=== PATIENT | female | born 1975 | race Two or more races ===

== ENCOUNTER → 2017-06-11 16:18 | Outpatient (CLI) | payer OTHER ==
[~2017-06-11] VITALS: Ht 152.4 cm; Wt 117.9 kg
[~2017-06-11 16:18] MED LIST: CATAFLAM50 MG PO; CIPRO500 MG PO; ENDOCET 5/325 T1 TAB PO; GILTUSS TR TAB1 EACH; IRON1TAB4; KETO10TA2 PO; MAALOX ADVANCE355 ML PO; MIRALAX510 GM PO; NAPR500T14 PO; PROTONIX40 MG PO; PROVENTIL HFA6.7 GM IH; ZITHROMAX500 MG
== END | disposition home or self-care (01) ==
LOC: PPHC 16:18
DX: F41.8 Other specified anxiety disorders (principal)

== ENCOUNTER 2017-06-12 06:50 | Outpatient (CLI) | payer OTHER | END 2017-06-12 07:08 | disposition home or self-care (01) | LOC: LAB 06:50 | DX: Z00.00 Encounter for general adult medical examination without abnormal findings (principal) ==

== ENCOUNTER 2017-06-12 06:59 | Outpatient (CLI) | payer OTHER | END 2017-06-12 07:03 | disposition home or self-care (01) | LOC: EKG 06:59 | DX: F41.9 Anxiety disorder, unspecified (principal) ==

== ENCOUNTER → 2017-06-13 | Outpatient (CLI) | payer OTHER ==
[~2017-06-13] VITALS: Ht 152.4 cm; Wt 110.2 kg
== END | disposition home or self-care (01) ==
LOC: PPHC 15:51
DX: Z00.00 Encounter for general adult medical examination without abnormal findings (principal); R00.2 Palpitations

== ENCOUNTER 2017-11-17 23:47 | Emergency (ER) | payer OTHER ==
[~2017-11-17] VITALS: Ht 162.6 cm; Wt 108.9 kg
== END 2017-11-18 01:02 | disposition home or self-care (01) ==
LOC: ER 23:47
DX: M54.5 Low back pain (principal)

== ENCOUNTER 2017-12-09 07:20 | Outpatient (CLI) | payer OTHER | END 2017-12-09 07:25 | disposition home or self-care (01) | LOC: LAB 07:20 | DX: D64.89 Other specified anemias (principal) ==

== ENCOUNTER 2017-12-09 08:00 | Outpatient (CLI) | payer OTHER | END 2017-12-09 08:06 | disposition home or self-care (01) | LOC: MAMO-SONO 08:00 | DX: Z12.31 Encounter for screening mammogram for malignant neoplasm of breast (principal) ==

== ENCOUNTER 2017-12-23 10:26 | Outpatient (CLI) | payer OTHER | END 2017-12-23 10:32 | disposition home or self-care (01) | LOC: LAB 10:26 | DX: D64.89 Other specified anemias (principal) ==

== ENCOUNTER 2018-04-21 06:48 | Outpatient (CLI) | payer OTHER | END 2018-04-21 06:53 | disposition home or self-care (01) | LOC: LAB 06:48 | DX: D50.8 Other iron deficiency anemias (principal); E03.8 Other specified hypothyroidism; E78.2 Mixed hyperlipidemia; I11.9 Hypertensive heart disease without heart failure; E56.8 Deficiency of other vitamins; N39.0 Urinary tract infection, site not specified; Z12.11 Encounter for screening for malignant neoplasm of colon; E55.9 Vitamin D deficiency, unspecified; N19 Unspecified kidney failure; E11.9 Type 2 diabetes mellitus without complications; R80.8 Other proteinuria; K92.1 Melena ==

== ENCOUNTER 2018-07-20 17:45 | Outpatient (CLI) | payer OTHER | END 2018-07-20 18:02 | disposition home or self-care (01) | LOC: LAB 17:45 | DX: J20.0 Acute bronchitis due to Mycoplasma pneumoniae (principal) ==

== ENCOUNTER 2018-08-10 07:20 | Outpatient (CLI) | payer OTHER | END 2018-08-10 07:28 | disposition home or self-care (01) | LOC: LAB 07:20 | DX: D50.8 Other iron deficiency anemias (principal); E03.8 Other specified hypothyroidism; E78.2 Mixed hyperlipidemia; I11.9 Hypertensive heart disease without heart failure; E56.8 Deficiency of other vitamins; N39.0 Urinary tract infection, site not specified; Z12.11 Encounter for screening for malignant neoplasm of colon; B96.89 Other specified bacterial agents as the cause of diseases classified elsewhere ==

== ENCOUNTER 2018-08-14 15:28 | Outpatient (CLI) | payer OTHER | END 2018-08-14 19:00 | disposition home or self-care (01) | LOC: LAB 15:28 | DX: J11.1 Influenza due to unidentified influenza virus with other respiratory manifestations (principal) ==

== ENCOUNTER 2018-12-17 13:55 | Outpatient (CLI) | payer OTHER | END 2018-12-17 13:57 | disposition home or self-care (01) | LOC: MAMO-SONO 13:55 | DX: Z12.31 Encounter for screening mammogram for malignant neoplasm of breast (principal); N63.10 Unspecified lump in the right breast, unspecified quadrant; N63.20 Unspecified lump in the left breast, unspecified quadrant ==

== ENCOUNTER 2019-01-05 07:49 | Outpatient (CLI) | payer OTHER | END 2019-01-05 07:55 | disposition home or self-care (01) | LOC: LAB 07:49 | DX: D50.8 Other iron deficiency anemias (principal); E03.9 Hypothyroidism, unspecified; E03.8 Other specified hypothyroidism; E78.2 Mixed hyperlipidemia; I11.9 Hypertensive heart disease without heart failure; E56.8 Deficiency of other vitamins; N39.0 Urinary tract infection, site not specified; Z12.11 Encounter for screening for malignant neoplasm of colon; R19.5 Other fecal abnormalities; E55.9 Vitamin D deficiency, unspecified; N19 Unspecified kidney failure; E11.9 Type 2 diabetes mellitus without complications; R80.9 Proteinuria, unspecified; R80.8 Other proteinuria; C18.9 Malignant neoplasm of colon, unspecified ==

== ENCOUNTER → 2019-01-09 07:35 | Outpatient (CLI) | payer OTHER | END | disposition home or self-care (01) | LOC: LAB 07:35 | DX: D50.8 Other iron deficiency anemias (principal); E03.8 Other specified hypothyroidism; E78.2 Mixed hyperlipidemia; E11.9 Type 2 diabetes mellitus without complications; E56.8 Deficiency of other vitamins; N39.0 Urinary tract infection, site not specified; Z12.11 Encounter for screening for malignant neoplasm of colon; R19.5 Other fecal abnormalities; E55.9 Vitamin D deficiency, unspecified; N19 Unspecified kidney failure; R80.8 Other proteinuria; C18.9 Malignant neoplasm of colon, unspecified ==

== ENCOUNTER → 2019-03-22 12:38 | Outpatient (CLI) | payer OTHER | END | disposition home or self-care (01) | LOC: LAB 12:38 | DX: J11.1 Influenza due to unidentified influenza virus with other respiratory manifestations (principal); J20.0 Acute bronchitis due to Mycoplasma pneumoniae ==

== ENCOUNTER 2019-03-23 12:55 | Outpatient (CLI) | payer OTHER | END 2019-03-23 13:00 | disposition home or self-care (01) | LOC: LAB 12:55 | DX: J11.1 Influenza due to unidentified influenza virus with other respiratory manifestations (principal) ==

== ENCOUNTER 2019-03-24 07:22 | Outpatient (CLI) | payer OTHER | END 2019-03-24 07:26 | disposition home or self-care (01) | LOC: LAB 07:22 | DX: B34.8 Other viral infections of unspecified site (principal) ==

== ENCOUNTER 2019-03-26 14:41 | Outpatient (CLI) | payer OTHER | END 2019-03-26 14:49 | disposition home or self-care (01) | LOC: LAB 14:41 | DX: D69.49 Other primary thrombocytopenia (principal); J06.9 Acute upper respiratory infection, unspecified ==

== ENCOUNTER 2019-06-25 07:05 | Outpatient (CLI) | payer OTHER | END 2019-06-25 07:09 | disposition home or self-care (01) | LOC: LAB 07:05 | DX: D50.8 Other iron deficiency anemias (principal); E03.8 Other specified hypothyroidism; E78.2 Mixed hyperlipidemia; I11.9 Hypertensive heart disease without heart failure; E56.8 Deficiency of other vitamins; N39.0 Urinary tract infection, site not specified; Z12.11 Encounter for screening for malignant neoplasm of colon; E55.9 Vitamin D deficiency, unspecified; N19 Unspecified kidney failure; E11.9 Type 2 diabetes mellitus without complications; R80.8 Other proteinuria; C18.0 Malignant neoplasm of cecum; K92.1 Melena ==

== ENCOUNTER 2019-09-13 14:49 | Outpatient (CLI) | payer OTHER | END 2019-09-13 15:22 | disposition home or self-care (01) | LOC: LAB 14:49 | DX: J11.1 Influenza due to unidentified influenza virus with other respiratory manifestations (principal); J06.9 Acute upper respiratory infection, unspecified ==

== ENCOUNTER 2019-09-14 10:08 | Outpatient (CLI) | payer OTHER | END 2019-09-14 11:12 | disposition home or self-care (01) | LOC: LAB 10:08 | DX: J06.9 Acute upper respiratory infection, unspecified (principal); R05 Cough ==

== ENCOUNTER 2019-12-16 23:23 | Emergency (ER) | payer OTHER ==
[~2019-12-16] VITALS: Ht 154.9 cm; Wt 107.0 kg
== END 2019-12-17 05:19 | disposition home or self-care (01) ==
LOC: ER 23:23
DX: N93.8 Other specified abnormal uterine and vaginal bleeding (principal)

== ENCOUNTER → 2019-12-22 14:16 | Outpatient (CLI) | payer OTHER | END | disposition home or self-care (01) | LOC: LAB 14:16 | PROVIDERS: ATTEND General Practice | DX: N93.8 Other specified abnormal uterine and vaginal bleeding (principal) ==

== ENCOUNTER 2020-01-06 06:45 | Outpatient (CLI) | payer OTHER | END 2020-01-06 06:52 | disposition home or self-care (01) | LOC: LAB 06:45 | PROVIDERS: ATTEND Specialist | DX: D50.8 Other iron deficiency anemias (principal); E83.51 Hypocalcemia; D68.8 Other specified coagulation defects; N39.0 Urinary tract infection, site not specified; N83.299 Other ovarian cyst, unspecified side ==

== ENCOUNTER 2020-01-10 07:28 | Outpatient (CLI) | payer OTHER | END 2020-01-10 07:41 | disposition home or self-care (01) | LOC: RAD 07:28 → MAMO-SONO 07:45 | PROVIDERS: ATTEND Specialist | DX: Z12.31 Encounter for screening mammogram for malignant neoplasm of breast (principal); N63.10 Unspecified lump in the right breast, unspecified quadrant; N63.20 Unspecified lump in the left breast, unspecified quadrant; R10.2 Pelvic and perineal pain; N81.4 Uterovaginal prolapse, unspecified; N92.0 Excessive and frequent menstruation with regular cycle ==

== ENCOUNTER 2020-01-10 09:24 | Outpatient (CLI) | payer OTHER | END 2020-01-10 09:31 | disposition home or self-care (01) | LOC: EKG 09:24 | PROVIDERS: ATTEND Specialist | DX: Z01.810 Encounter for preprocedural cardiovascular examination (principal) ==

== ENCOUNTER → 2020-01-12 14:30 | Outpatient (CLI) | payer OTHER | END | disposition home or self-care (01) | LOC: LAB 10:06 | PROVIDERS: ATTEND Internal Medicine Cardiovascular Disease | DX: R05 Cough (principal); Z20.828 Contact with and (suspected) exposure to other viral communicable diseases; R06.2 Wheezing ==

== ENCOUNTER → 2020-01-14 | Outpatient (CLI) | payer OTHER | END | disposition home or self-care (01) | LOC: LAB 06:00 → OB/GYN 01-17 11:00 → EDSTATUS 01-17 11:00 | PROVIDERS: ATTEND Specialist | DX: Z20.828 Contact with and (suspected) exposure to other viral communicable diseases (principal); R05 Cough; R06.2 Wheezing; R50.9 Fever, unspecified ==

== ENCOUNTER 2020-02-17 08:00 | Outpatient (CLI) | payer OTHER | END 2020-02-17 15:45 | disposition home or self-care (01) | LOC: PPH VACUNA 08:00 | DX: Z23 Encounter for immunization (principal) ==

== ENCOUNTER 2020-02-21 07:17 | Outpatient (CLI) | payer OTHER | END 2020-02-21 07:22 | disposition home or self-care (01) | LOC: LAB 07:17 | DX: J45.998 Other asthma (principal) ==

== ENCOUNTER 2020-03-15 14:42 | Outpatient (CLI) | payer OTHER | END 2020-03-15 15:38 | disposition home or self-care (01) | LOC: LAB 14:42 | PROVIDERS: ATTEND General Practice | DX: D64.89 Other specified anemias (principal) ==

== ENCOUNTER 2020-05-14 15:23 | Emergency (ER) | payer OTHER ==
[~2020-05-14] VITALS: Ht 162.6 cm; Wt 107.0 kg
[2020-05-14] MEDS ORDERED: KETO10TA2 PO (18:25)
[2020-05-14] MEDS ORDERED: ORPHENADRINE C100 MG PO (18:25)
[2020-05-14] MEDS ORDERED: PEPCID20 MG PO (18:25)
== END 2020-05-14 18:44 | disposition home or self-care (01) ==
LOC: ER 15:23
DX: M54.5 Low back pain (principal)

== ENCOUNTER 2020-05-18 09:11 | Outpatient (CLI) | payer OTHER ==
[~2020-05-18 09:11] MED LIST changes: +ORPHENADRINE C100 MG PO; +PEPCID20 MG PO
[2020-07-28] MEDS ORDERED: INTEGRA F CAPS1 EACH PO (13:59)
[2020-07-28] MEDS ORDERED: FLONASE16 GM (13:59)
[2020-07-28] MEDS ORDERED: VITAL-D RX TAB1 EACH PO (14:00)
[2020-08-07] MEDS ORDERED: IBUPROFEN800 MG PO (08:45)
== END 2020-05-18 18:00 | disposition home or self-care (01) ==
LOC: PPH VACUNA 09:11
DX: Z23 Encounter for immunization (principal)

== ENCOUNTER 2020-07-18 06:41 | Outpatient (CLI) | payer OTHER ==
[2020-07-28] MEDS ORDERED: INTEGRA F CAPS1 EACH PO (13:59)
[2020-07-28] MEDS ORDERED: FLONASE16 GM (13:59)
[2020-07-28] MEDS ORDERED: VITAL-D RX TAB1 EACH PO (14:00)
== END 2020-07-18 06:49 | disposition home or self-care (01) ==
LOC: LAB 06:41
PROVIDERS: ATTEND Specialist
DX: U07.1 COVID-19 (principal); D50.8 Other iron deficiency anemias; E83.51 Hypocalcemia; D68.8 Other specified coagulation defects; N39.0 Urinary tract infection, site not specified; R00.0 Tachycardia, unspecified

== ENCOUNTER 2020-10-02 12:41 | Emergency (ER) | payer OTHER ==
[~2020-10-02] VITALS: Ht 162.6 cm; Wt 102.5 kg
[~2020-10-02 12:41] MED LIST changes: +FLONASE16 GM; +IBUPROFEN800 MG PO; +INTEGRA F CAPS1 EACH PO; +VITAL-D RX TAB1 EACH PO
[2020-10-02] MEDS ORDERED: CLEOCIN HCL300 MG PO (15:41)
== END 2020-10-02 15:56 | disposition home or self-care (01) ==
LOC: ER 12:41
DX: K29.00 Acute gastritis without bleeding (principal)

== ENCOUNTER 2020-11-01 09:14 | Emergency (ER) | payer OTHER ==
[~2020-11-01] VITALS: Ht 162.6 cm; Wt 103.0 kg
[~2020-11-01 09:14] MED LIST changes: +CLEOCIN HCL300 MG PO
[2020-11-01] MEDS ORDERED: LACTULOSE10 GM/151 PO (11:46)
== END 2020-11-01 11:54 | disposition home or self-care (01) ==
LOC: ER 09:14
DX: K59.09 Other constipation (principal)

== ENCOUNTER 2020-12-18 23:25 | Emergency (ER) | payer OTHER ==
[~2020-12-18] VITALS: Ht 162.6 cm; Wt 101.2 kg
[~2020-12-18 23:25] MED LIST changes: +LACTULOSE10 GM/151 PO
[2020-12-19] MEDS ORDERED: MEDROLPACK PO (02:01)
[2020-12-19] MEDS ORDERED: ORPHENADRINE C100 MG PO (02:01)
[2020-12-19] MEDS ORDERED: KETO10TA2 PO (02:01)
== END 2020-12-19 02:24 | disposition home or self-care (01) ==
LOC: ER 23:25
DX: M54.5 Low back pain (principal)

== ENCOUNTER 2021-01-12 00:28 | Emergency (ER) | payer OTHER ==
[~2021-01-12] VITALS: Ht 162.6 cm; Wt 102.5 kg
[~2021-01-12 00:28] MED LIST changes: +MEDROLPACK PO
[2021-01-12] MEDS ORDERED: TAMS0.4C PO (08:20)
[2021-01-12] MEDS ORDERED: KETO10TA2 PO (08:20)
== END 2021-01-12 08:44 ==
LOC: ER 00:28
DX: N20.0 Calculus of kidney (principal)

== ENCOUNTER 2021-02-26 08:00 | Outpatient (CLI) | payer OTHER ==
[~2021-02-26 08:00] MED LIST changes: +TAMS0.4C PO
== END 2021-02-26 08:30 | disposition home or self-care (01) ==
LOC: PPH VACUNA 08:00
PROVIDERS: ATTEND Emergency Medicine Pediatric Emergency Medicine
DX: Z23 Encounter for immunization (principal)

== ENCOUNTER 2021-03-22 09:00 | Outpatient (CLI) | payer OTHER | END 2021-03-22 09:04 | disposition home or self-care (01) | LOC: LAB 09:00 | PROVIDERS: ATTEND Internal Medicine Cardiovascular Disease | DX: I10 Essential (primary) hypertension (principal); R10.84 Generalized abdominal pain; E11.9 Type 2 diabetes mellitus without complications; E03.8 Other specified hypothyroidism; E78.2 Mixed hyperlipidemia; E55.9 Vitamin D deficiency, unspecified; M46.47 Discitis, unspecified, lumbosacral region ==

== ENCOUNTER 2021-03-24 17:58 | Emergency (ER) | payer OTHER ==
[~2021-03-24] VITALS: Ht 154.9 cm; Wt 88.5 kg
== END 2021-03-24 18:36 | disposition home or self-care (01) ==
LOC: ER 17:58
DX: M77.8 Other enthesopathies, not elsewhere classified (principal); M25.531 Pain in right wrist

== ENCOUNTER 2021-05-21 05:53 | Day surgery (SDC) | payer OTHER | END 2021-05-21 10:35 | disposition home or self-care (01) | LOC: AMB-ENDOS 05:53 | PROVIDERS: ATTEND Surgery | DX: K62.89 Other specified diseases of anus and rectum (principal) ==

== ENCOUNTER 2021-08-20 14:58 | Emergency (ER) | payer OTHER ==
[~2021-08-20] VITALS: Ht 162.6 cm; Wt 106.1 kg
== END 2021-08-20 19:50 | disposition home or self-care (01) ==
LOC: ER 14:58
DX: F41.9 Anxiety disorder, unspecified (principal); R51.9 Headache, unspecified; F43.0 Acute stress reaction; Z20.822 Contact with and (suspected) exposure to COVID-19

== ENCOUNTER 2021-11-15 10:14 | Emergency (ER) | payer OTHER ==
[~2021-11-15] VITALS: Ht 162.6 cm; Wt 107.0 kg
== END 2021-11-15 13:14 | disposition home or self-care (01) ==
LOC: ER 10:14
DX: U07.1 COVID-19 (principal); B34.9 Viral infection, unspecified; Z91.012 Allergy to eggs; Z91.013 Allergy to seafood; Z88.8 Allergy status to other drugs, medicaments and biological substances; Z91.018 Allergy to other foods

== ENCOUNTER 2022-01-14 23:39 | Emergency (ER) | payer OTHER ==
[~2022-01-14] VITALS: Ht 162.6 cm; Wt 106.6 kg
[2022-01-15] MEDS ORDERED: DICLOFENAC POTA50 MG PO (05:26)
== END 2022-01-15 06:07 | disposition home or self-care (01) ==
LOC: ER 23:39
DX: R10.2 Pelvic and perineal pain (principal); N28.1 Cyst of kidney, acquired; Z91.012 Allergy to eggs; Z91.013 Allergy to seafood; Z88.8 Allergy status to other drugs, medicaments and biological substances; Z91.018 Allergy to other foods

== ENCOUNTER 2022-01-25 07:58 | Outpatient (CLI) | payer OTHER ==
[~2022-01-25 07:58] MED LIST changes: +DICLOFENAC POTA50 MG PO
== END 2022-01-25 07:59 | disposition home or self-care (01) ==
LOC: LAB 07:58
PROVIDERS: ATTEND Internal Medicine Nephrology
DX: N18.1 Chronic kidney disease, stage 1 (principal); I10 Essential (primary) hypertension; E78.70 Disorder of bile acid and cholesterol metabolism, unspecified

== ENCOUNTER 2022-02-08 08:31 | Outpatient (CLI) | payer OTHER | END 2022-02-08 15:42 | disposition home or self-care (01) | LOC: MAMO-SONO 08:31 | PROVIDERS: ATTEND General Practice | DX: N63.0 Unspecified lump in unspecified breast (principal); Z12.31 Encounter for screening mammogram for malignant neoplasm of breast ==

== ENCOUNTER 2022-02-13 08:00 | Outpatient (CLI) | payer OTHER | END 2022-02-13 08:05 | disposition home or self-care (01) | LOC: PPH VACUNA 08:00 | PROVIDERS: ATTEND Emergency Medicine Pediatric Emergency Medicine | DX: Z23 Encounter for immunization (principal) ==

== ENCOUNTER → 2022-03-03 | Emergency (ER) | payer OTHER ==
[~2022-03-03] VITALS: Ht 157.5 cm; Wt 79.4 kg
== END | disposition home or self-care (01) ==
LOC: ER 15:19
DX: M62.830 Muscle spasm of back (principal); Z91.013 Allergy to seafood; Z91.012 Allergy to eggs; Z88.6 Allergy status to analgesic agent

== ENCOUNTER 2022-03-18 07:50 | Emergency (ER) | payer OTHER ==
[~2022-03-18] VITALS: Ht 162.6 cm; Wt 108.9 kg
[2022-03-18] MEDS ORDERED: LEVSIN/SL0.125 MG SL (17:20)
[2022-03-18] MEDS ORDERED: PEPCID AC20 MG PO (17:20)
== END 2022-03-18 17:25 | disposition home or self-care (01) ==
LOC: ER 07:50
DX: K80.50 Calculus of bile duct without cholangitis or cholecystitis without obstruction (principal)

== ENCOUNTER 2022-04-29 07:09 | Outpatient (CLI) | payer OTHER ==
[~2022-04-29 07:09] MED LIST changes: +LEVSIN/SL0.125 MG SL; +PEPCID AC20 MG PO
== END 2022-04-29 07:11 | disposition home or self-care (01) ==
LOC: NUCLEAR 07:09
PROVIDERS: ATTEND Surgery
DX: K80.80 Other cholelithiasis without obstruction (principal); R10.9 Unspecified abdominal pain; Z91.012 Allergy to eggs; Z91.02 Food additives allergy status; Z88.5 Allergy status to narcotic agent; Z91.013 Allergy to seafood
CPT/HCPCS: 78227; A9537; J2805

== ENCOUNTER → 2022-06-20 | Outpatient (CLI) | payer OTHER ==
[~2022-06-20] MED LIST changes: +MAXITROL EYE DRO5 ML OP
== END | disposition home or self-care (01) ==
LOC: NUCLEAR 06:45
PROVIDERS: ATTEND Internal Medicine Cardiovascular Disease
DX: I87.2 Venous insufficiency (chronic) (peripheral) (principal)

== ENCOUNTER 2022-07-29 15:21 | Outpatient (CLI) | payer OTHER | END 2022-07-29 15:34 | disposition home or self-care (01) | LOC: PPH VACUNA 15:21 | PROVIDERS: ATTEND Emergency Medicine Pediatric Emergency Medicine | DX: Z23 Encounter for immunization (principal) ==

== ENCOUNTER 2022-08-21 10:04 | Emergency (ER) | payer OTHER ==
[~2022-08-21] VITALS: Ht 162.6 cm; Wt 108.9 kg
[2022-08-21] MEDS ORDERED: ECOTRIN81 MG (10:19)
[2022-08-21] MEDS ORDERED: TAMS0.4C PO (14:13)
[2022-08-21] MEDS ORDERED: KETO10TA2 PO (14:13)
== END 2022-08-21 14:19 | disposition home or self-care (01) ==
LOC: ER 10:04
DX: N20.0 Calculus of kidney (principal); Z91.013 Allergy to seafood; Z88.5 Allergy status to narcotic agent; Z91.012 Allergy to eggs; Z91.018 Allergy to other foods; Z90.710 Acquired absence of both cervix and uterus

== ENCOUNTER 2022-12-11 22:35 | Emergency (ER) | payer OTHER ==
[~2022-12-11] VITALS: Ht 162.6 cm; Wt 108.0 kg
[~2022-12-11 22:35] MED LIST changes: +ECOTRIN81 MG
== END 2022-12-12 00:09 | disposition home or self-care (01) ==
LOC: ER 22:35
DX: M54.31 Sciatica, right side (principal); Z91.012 Allergy to eggs; Z91.013 Allergy to seafood; Z88.6 Allergy status to analgesic agent

== ENCOUNTER 2022-12-27 14:44 | Emergency (ER) | payer OTHER ==
[~2022-12-27] VITALS: Ht 162.6 cm; Wt 108.0 kg
== END 2022-12-27 16:57 | disposition home or self-care (01) ==
LOC: ER 14:44
DX: M54.40 Lumbago with sciatica, unspecified side (principal); I87.9 Disorder of vein, unspecified; I87.2 Venous insufficiency (chronic) (peripheral); Z88.6 Allergy status to analgesic agent; Z91.013 Allergy to seafood; M79.661 Pain in right lower leg

== ENCOUNTER 2023-02-21 11:00 | Outpatient (CLI) | payer OTHER ==
[2023-02-27] MEDS ORDERED: NORFLEX100MG PO (18:29)
[2023-02-27] MEDS ORDERED: DICLOFENAC SODI75 MG PO (18:29)
== END 2023-02-21 11:10 | disposition home or self-care (01) ==
LOC: PPH VACUNA 11:00
PROVIDERS: ATTEND Emergency Medicine Pediatric Emergency Medicine
DX: Z23 Encounter for immunization (principal)
CPT/HCPCS: 90686; G0008

== ENCOUNTER 2023-03-18 10:03 | Outpatient (CLI) | payer OTHER ==
[~2023-03-18 10:03] MED LIST changes: +DICLOFENAC SODI75 MG PO; +NORFLEX100MG PO
== END 2023-03-18 10:19 | disposition home or self-care (01) ==
LOC: RAD 10:03
PROVIDERS: ATTEND Internal Medicine Cardiovascular Disease
DX: M79.9 Soft tissue disorder, unspecified (principal); M46.47 Discitis, unspecified, lumbosacral region; Z88.6 Allergy status to analgesic agent; Z91.013 Allergy to seafood; Z91.018 Allergy to other foods

== ENCOUNTER → 2023-03-24 06:38 | Outpatient (CLI) | payer OTHER ==
[2023-03-24 07:39] LABS: HEMATOCRIT 35.8 % (36.0-45.00); HEMOGLOBIN 11.9 g/dL (12.0-15.00); MEAN CELL VOLUME 84.8 fL (80.00-100.00); MEAN CORPUSCULAR HEMOGLOBIN 28.1 pg (27.00-32.0); MEAN CORPUSCULAR HGB CONC 33.2 g/dl (32.0-36.0); PLATELET COUNT 250 K/uL (150-450); RED BLOOD COUNT 4.23 M/uL (4.00-6.00); RED CELL DISTRIBUTION WIDTH 13.5 % (11.5-14.5)
[2023-03-24 07:41] LABS: PH,URINE 6.5 (5.0-8.0); URINE APPEARANCE Clear; URINE BILIRRUBIN Negative (NEGATIVE); URINE BLOOD Negative; URINE COLOR Yellow; URINE GLUCOSE Negative (NEGATIVE); URINE LEUKOCYTE Negative; URINE NITRATE Negative; URINE PROTEIN Negative (NEGATIVE)
[2023-03-24 07:46] LABS: URINE BACTERIA 675.2 uL (0.0-1933); URINE EPITHELIAL CELLS 35.3 uL (0.0-38.8); URINE RBC 11.9 uL (0.0-20.8); URINE WBC 9.7 uL (0.0-23.2)
[2023-03-24 08:28] LABS: ALBUMIN 3.5 gm/dL (3.4-5.0); BILIRUBIN TOTAL 0.21 mg/dL (0.3-1.2); CHOL HDL RATIO 3.2 (0-5.0); CREATININE SERUM 0.67 mg/dL (0.55-1.02); GFR 94.76; GLOBULINA 3.2 G/DL (2.4-3.5); POTASSIUM 4.43 mEq/L (3.5-5.1); T4 TOTAL 6.55 UG/DL (4.8-13.9); TOTAL PROTEIN 6.7 gm/dL (6.4-8.2); TSH 4.38 uIU/mL (0.358-3.74)
[2023-03-24 10:34] LABS: T3 TOTAL 0.892 ng/ml (0.846-2.02); VITAMIN D3 25 HYDROXY 21.5 ng/ml (30-120)
== END | disposition home or self-care (01) ==
LOC: LAB 06:38
PROVIDERS: ATTEND Internal Medicine Cardiovascular Disease
DX: E11.9 Type 2 diabetes mellitus without complications (principal); E03.9 Hypothyroidism, unspecified; E78.2 Mixed hyperlipidemia; E55.9 Vitamin D deficiency, unspecified; Z88.6 Allergy status to analgesic agent; Z91.013 Allergy to seafood; Z91.018 Allergy to other foods

== ENCOUNTER 2023-03-24 14:52 | Outpatient (CLI) | payer OTHER | END 2023-03-24 14:57 | disposition home or self-care (01) | LOC: MRI 14:52 | PROVIDERS: ATTEND Internal Medicine Cardiovascular Disease | DX: M46.47 Discitis, unspecified, lumbosacral region (principal); Z88.6 Allergy status to analgesic agent; Z91.013 Allergy to seafood; Z91.018 Allergy to other foods | CPT/HCPCS: 72148 ==

== ENCOUNTER 2023-05-09 12:18 | Outpatient (CLI) | payer OTHER ==
[~2023-05-09 12:18] MED LIST changes: +CELEBREX200MG PO; +GABAPENTIN100 M2 PO; +NEURONTIN300 MG PO; +PREGABALIN25 MG PO
== END 2023-05-09 12:28 | disposition home or self-care (01) ==
LOC: SONOGRAMA 12:18
PROVIDERS: ATTEND Urology
DX: N31.0 Uninhibited neuropathic bladder, not elsewhere classified (principal)

== ENCOUNTER 2023-08-16 07:13 | Outpatient (CLI) | payer OTHER ==
[~2023-08-16 07:13] MED LIST changes: +CYMBALTA30 MG PO; +PREGABALIN50 MG PO
[2023-08-16 08:36] LABS: HEMATOCRIT 35.6 % (36.0-45.00); HEMOGLOBIN 11.7 g/dL (12.0-15.00); MEAN CELL VOLUME 84.3 fL (80.00-100.00); MEAN CORPUSCULAR HEMOGLOBIN 27.7 pg (27.00-32.0); MEAN CORPUSCULAR HGB CONC 32.8 g/dl (32.0-36.0); PLATELET COUNT 268 K/uL (150-450); RED BLOOD COUNT 4.23 M/uL (4.00-6.00); RED CELL DISTRIBUTION WIDTH 13.2 % (11.5-14.5)
[2023-08-16 08:59] LABS: INR 1.05; PARTIAL THROMBOPLASTIN TIME 30.2 SECONDS (22.0-34.0)
[2023-08-16 09:03] LABS: ALBUMIN 3.5 gm/dL (3.4-5.0); BILIRUBIN TOTAL 0.26 mg/dL (0.3-1.2); CALCIUM 8.7 mg/dL (8.5-10.1); CHOL HDL RATIO 3.9 (0-5.0); CREATININE SERUM 0.55 mg/dL (0.55-1.02); GFR 118.48; GLOBULINA 3.3 G/DL (2.4-3.5); MAGNESIUM 2.3 mg/dL (1.8-2.4); PHOSPHOROUS 3.7 mg/dL (2.5-4.9); POTASSIUM 3.75 mEq/L (3.5-5.1); TOTAL PROTEIN 6.8 gm/dL (6.4-8.2)
[2023-08-16 09:07] LABS: URINE APPEARANCE Clear; URINE BILIRRUBIN Negative (NEGATIVE); URINE BLOOD Negative; URINE COLOR Yellow; URINE GLUCOSE Negative (NEGATIVE); URINE LEUKOCYTE Negative; URINE NITRATE Negative; URINE PROTEIN Negative (NEGATIVE); URINE UROBILINOGEN 0.2 E.U./dl
[2023-08-16 09:11] LABS: URINE BACTERIA 55.3 uL (0.0-1933); URINE EPITHELIAL CELLS 2.3 uL (0.0-38.8)
[2023-08-16 09:32] LABS: URINE RBC 0.5 uL (0.0-20.8); URINE WBC 1.5 uL (0.0-23.2)
[2023-08-18 13:34] LABS: VITAMIN D3 25 HYDROXY 30.72 ng/ml (30-120)
== END 2023-08-16 07:18 | disposition home or self-care (01) ==
LOC: LAB 07:13
PROVIDERS: ATTEND Anesthesiology Pain Medicine
DX: M51.27 Other intervertebral disc displacement, lumbosacral region (principal); M54.17 Radiculopathy, lumbosacral region; E78.00 Pure hypercholesterolemia, unspecified; E11.43 Type 2 diabetes mellitus with diabetic autonomic (poly)neuropathy; E55.9 Vitamin D deficiency, unspecified; D51.9 Vitamin B12 deficiency anemia, unspecified; E83.39 Other disorders of phosphorus metabolism; E83.42 Hypomagnesemia; E03.9 Hypothyroidism, unspecified

== ENCOUNTER 2024-01-09 08:42 | Outpatient (CLI) | payer OTHER ==
[2024-01-09 09:20] LABS: HEMATOCRIT 36.7 % (36.0-45.00); MEAN CORPUSCULAR HEMOGLOBIN 27.9 pg (27.00-32.0); MEAN CORPUSCULAR HGB CONC 32.8 g/dl (32.0-36.0); PLATELET COUNT 245 K/uL (150-450); RED BLOOD COUNT 4.32 M/uL (4.00-6.00); RED CELL DISTRIBUTION WIDTH 13.6 % (11.5-14.5)
[2024-01-09 09:49] LABS: URINE APPEARANCE Clear; URINE BILIRRUBIN Negative (NEGATIVE); URINE BLOOD Negative; URINE COLOR Yellow; URINE GLUCOSE Negative (NEGATIVE); URINE KETONE Negative (NEGATIVE); URINE LEUKOCYTE Trace; URINE NITRATE Negative; URINE PROTEIN Negative (NEGATIVE); URINE UROBILINOGEN 0.2 E.U./dl
[2024-01-09 09:51] LABS: URINE BACTERIA 146.1 uL (0.0-1933); URINE EPITHELIAL CELLS 7.5 uL (0.0-38.8); URINE RBC 5.3 uL (0.0-20.8); URINE WBC 23.1 uL (0.0-23.2)
[2024-01-09 10:12] LABS: ALBUMIN 3.6 gm/dL (3.4-5.0); BILIRUBIN TOTAL 0.51 mg/dL (0.3-1.2); CALCIUM 9.2 mg/dL (8.5-10.1); CHOL HDL RATIO 3.1 (0-5.0); CREATININE SERUM 0.54 mg/dL (0.55-1.02); GFR 121.01; GLOBULINA 3.3 G/DL (2.4-3.5); POTASSIUM 4.28 mEq/L (3.5-5.1); T4 TOTAL 7.23 UG/DL (4.8-13.9); TOTAL PROTEIN 6.9 gm/dL (6.4-8.2); TSH 2.32 uIU/mL (0.358-3.74)
== END 2024-01-09 08:54 | disposition home or self-care (01) ==
LOC: LAB 08:42
PROVIDERS: ATTEND Internal Medicine Cardiovascular Disease
DX: E11.9 Type 2 diabetes mellitus without complications (principal); E03.9 Hypothyroidism, unspecified; E78.2 Mixed hyperlipidemia

== ENCOUNTER 2024-03-04 03:35 | Outpatient (CLI) | payer OTHER | END 2024-03-04 04:00 | disposition home or self-care (01) | LOC: PPH VACUNA 03:35 | PROVIDERS: ATTEND Emergency Medicine Pediatric Emergency Medicine | DX: Z23 Encounter for immunization (principal) ==

== ENCOUNTER 2024-03-22 23:12 | Emergency (ER) | payer OTHER ==
[~2024-03-22] VITALS: Ht 162.6 cm; Wt 104.3 kg
[2024-03-23] MEDS ORDERED: TRIAMCINOLONE ACETONIDE 40 MG/ML VIAL IM ONE (00:15)
[2024-03-23] MEDS ORDERED: KETOROLAC TROMETHAMINE 60 MG VIAL IM ONE (00:15)
== END 2024-03-23 02:04 | disposition home or self-care (01) ==
LOC: ER 23:14
DX: M54.16 Radiculopathy, lumbar region (principal); M43.6 Torticollis; Z91.013 Allergy to seafood; Z91.012 Allergy to eggs; Z91.018 Allergy to other foods

== ENCOUNTER 2024-05-06 00:19 | Emergency (ER) | payer OTHER ==
[~2024-05-06] VITALS: Ht 162.6 cm; Wt 104.3 kg
[2024-05-06] MEDS ORDERED: CHILDREN'S ASPI81 MG PO (01:26)
[2024-05-06] MEDS ORDERED: KETOROLAC TROMETHAMINE 60 MG VIAL IM STA (02:40)
[2024-05-06] MEDS ORDERED: ORPHENADRINE CITRATE 30 MG/ML AMPUL IM STA (02:40)
[2024-05-06] MEDS ORDERED: MELOXICAM15 MG PO (02:47)
== END 2024-05-06 02:48 ==
LOC: ER 00:19
DX: M62.838 Other muscle spasm (principal); Z88.1 Allergy status to other antibiotic agents; Z91.012 Allergy to eggs; Z91.013 Allergy to seafood; Z91.018 Allergy to other foods

== ENCOUNTER 2024-06-11 17:02 | Emergency (ER) | payer OTHER ==
[~2024-06-11] VITALS: Ht 162.6 cm; Wt 104.3 kg
[~2024-06-11 17:02] MED LIST changes: +CHILDREN'S ASPI81 MG PO; +MELOXICAM15 MG PO
[2024-06-11] MEDS ORDERED: IPRATROPIUM/ALBUTEROL SULFATE 3 ML AMPUL.NEB IH ONE ×2 (17:39→23:33)
[2024-06-11] MEDS ORDERED: METHYLPREDNISOLONE SOD SUCC 125 MG VIAL IV ONE (18:00)
[2024-06-11] MEDS ORDERED: IPRATROPIUM/ALBUTEROL SULFATE 3 ML AMPUL.NEB IH SCH ×2 (18:00→23:15)
[2024-06-11] MEDS ORDERED: GUAIFENESIN/DEXTROMETHORPHAN 10ML BLIST.PACK PO ONE (18:00)
[2024-06-11] MEDS ORDERED: GUAIFEN/DEXTROMETHORPHAN/PE 10 ML BLIST.PACK PO ONE (18:45)
[2024-06-11 19:20] LABS: HEMATOCRIT 36.1 % (36.0-45.00); HEMOGLOBIN 11.7 g/dL (12.0-15.00); MEAN CELL VOLUME 85.7 fL (80.00-100.00); MEAN CORPUSCULAR HEMOGLOBIN 27.8 pg (27.00-32.0); MEAN CORPUSCULAR HGB CONC 32.5 g/dl (32.0-36.0); PLATELET COUNT 291 K/uL (150-450); RED BLOOD COUNT 4.21 M/uL (4.00-6.00); RED CELL DISTRIBUTION WIDTH 13.2 % (11.5-14.5)
[2024-06-11 19:48] LABS: ALBUMIN 3.5 gm/dL (3.4-5.0); BILIRUBIN TOTAL 0.34 mg/dL (0.3-1.2); CALCIUM 9.3 mg/dL (8.5-10.1); CREATININE SERUM 0.87 mg/dL (0.55-1.02); GFR 69.49; GLOBULINA 3.9 G/DL (2.4-3.5); POTASSIUM 3.49 mEq/L (3.5-5.1); TOTAL PROTEIN 7.4 gm/dL (6.4-8.2)
[2024-06-11] MEDS ORDERED: MAGNESIUM SULFATE 2,000 MG in 0.9 % SODIUM CHLORIDE 100 ML IV ONE (20:45)
[2024-06-11] MEDS ORDERED: MAGNESIUM SULFATE 50% 1,000 MG/2 ML VIAL ONE (20:58)
[2024-06-11] MEDS ORDERED: MEDROLPACK PO (23:15)
[2024-06-11] MEDS ORDERED: ZYRTEC10 MG PO (23:15)
[2024-06-11] MEDS ORDERED: BENZONATATE150 MG PO (23:15)
[2024-06-11] MEDS ORDERED: TUSSIN DM LIQU118 ML PO (23:15)
[2024-06-11] MEDS ORDERED: SINGULAIR10 MG PO (23:15)
[2024-06-11] MEDS ORDERED: IPRATROPIU0.2 MG/1 M IH (23:15)
[2024-06-11] MEDS ORDERED: ALBUTEROL1.25 MG/3 IH (23:15)
[2024-06-11] MEDS ORDERED: ORPHENADRINE CITRATE 30 MG/ML AMPUL IM ONE (23:30)
[2024-06-11] MEDS ORDERED: KETOROLAC TROMETHAMINE 60 MG VIAL IM ONE ×2 (23:30→23:32)
[2024-06-11] MEDS ORDERED: ORPHENADRINE CITRATE 30 MG/ML AMPUL ONE (23:32)
== END 2024-06-12 00:02 | disposition home or self-care (01) ==
LOC: ER 17:05
PROVIDERS: Emergency Medicine
DX: J45.909 Unspecified asthma, uncomplicated (principal); Z20.822 Contact with and (suspected) exposure to COVID-19; Z91.012 Allergy to eggs; Z91.013 Allergy to seafood; Z88.8 Allergy status to other drugs, medicaments and biological substances; Z91.018 Allergy to other foods

== ENCOUNTER 2024-07-26 19:07 | Emergency (ER) | payer OTHER ==
[~2024-07-26] VITALS: Ht 162.6 cm; Wt 104.3 kg
[~2024-07-26 19:07] MED LIST changes: +ALBUTEROL1.25 MG/3 IH; +BENZONATATE150 MG PO; +IPRATROPIU0.2 MG/1 M IH; +SINGULAIR10 MG PO; +TUSSIN DM LIQU118 ML PO; +ZYRTEC10 MG PO
[2024-07-26] MEDS ORDERED: KETOROLAC TROMETHAMINE 60 MG VIAL IM ONE ×2 (20:30→20:35)
[2024-07-26] MEDS ORDERED: ORPHENADRINE CITRATE 30 MG/ML AMPUL IM ONE (20:30)
[2024-07-26] MEDS ORDERED: ORPHENADRINE CITRATE 30 MG/ML AMPUL ONE (20:35)
== END 2024-07-26 21:16 | disposition home or self-care (01) ==
LOC: ER 19:10
DX: M54.16 Radiculopathy, lumbar region (principal); Z88.5 Allergy status to narcotic agent; Z91.013 Allergy to seafood; Z91.018 Allergy to other foods

== ENCOUNTER 2024-09-08 13:56 | Emergency (ER) | payer OTHER ==
[~2024-09-08] VITALS: Ht 137.2 cm; Wt 104.3 kg
[2024-09-08] MEDS ORDERED: ORPHENADRINE CITRATE 30 MG/ML AMPUL IM STA (14:59)
[2024-09-08] MEDS ORDERED: KETOROLAC TROMETHAMINE 60 MG VIAL IM STA (14:59)
[2024-09-08] MEDS ORDERED: DEXAMETHASONE SODIUM PHOSPHATE 4 MG/ML VIAL IM STA (15:00)
[2024-09-08] MEDS ORDERED: KETOROLAC TROMETHAMINE 60 MG VIAL IM ONE ×2 (15:05→15:06)
[2024-09-08] MEDS ORDERED: DEXAMETHASONE SODIUM PHOSPHATE 4 MG/ML VIAL ONE (15:05)
[2024-09-08] MEDS ORDERED: ORPHENADRINE CITRATE 30 MG/ML AMPUL ONE (15:05)
== END 2024-09-08 15:26 | disposition home or self-care (01) ==
LOC: ER 13:57
DX: M54.50 Low back pain, unspecified (principal); Z88.5 Allergy status to narcotic agent; Z91.012 Allergy to eggs; Z91.013 Allergy to seafood; Z91.018 Allergy to other foods

== ENCOUNTER 2024-10-29 11:43 | Emergency (ER) | payer OTHER ==
[~2024-10-29] VITALS: Ht 162.6 cm; Wt 104.3 kg
[2024-10-29] MEDS ORDERED: KETOROLAC TROMETHAMINE 30 MG VIAL IM STA (14:06)
[2024-10-29] MEDS ORDERED: ORPHENADRINE CITRATE 30 MG/ML AMPUL IM STA (14:06)
[2024-10-29] MEDS ORDERED: KETOROLAC TROMETHAMINE 30 MG VIAL ONE (14:21)
[2024-10-29] MEDS ORDERED: ORPHENADRINE CITRATE 30 MG/ML AMPUL ONE (14:21)
== END 2024-10-29 14:40 | disposition home or self-care (01) ==
LOC: ER 11:43
DX: M79.604 Pain in right leg (principal); I87.2 Venous insufficiency (chronic) (peripheral); I83.91 Asymptomatic varicose veins of right lower extremity; Z91.012 Allergy to eggs; Z91.013 Allergy to seafood; Z88.8 Allergy status to other drugs, medicaments and biological substances; Z91.018 Allergy to other foods

== ENCOUNTER 2025-03-22 16:23 | Outpatient (CLI) | payer OTHER ==
[~2025-03-22 16:23] MED LIST changes: +NABUMETONE750 MG PO
== END 2025-03-22 16:33 | disposition home or self-care (01) ==
LOC: PPH VACUNA 16:23
PROVIDERS: ATTEND Emergency Medicine Pediatric Emergency Medicine
DX: Z23 Encounter for immunization (principal)

== ENCOUNTER 2025-03-29 13:21 | Outpatient (CLI) | payer OTHER | END 2025-03-29 13:24 | disposition home or self-care (01) | LOC: MAMO-SONO 13:21 | PROVIDERS: ATTEND Surgery | DX: N60.11 Diffuse cystic mastopathy of right breast (principal); N60.12 Diffuse cystic mastopathy of left breast ==

== ENCOUNTER 2025-04-15 15:08 | Emergency (ER) | payer OTHER ==
[~2025-04-15] VITALS: Ht 134.6 cm; Wt 102.1 kg
[2025-04-15] MEDS ORDERED: DIPHENHYDRAMINE HCL 50 MG/ML VIAL 1ML IM ONE (17:00)
[2025-04-15] MEDS ORDERED: METHYLPREDNISOLONE SOD SUCC 40 MG VIAL IM ONE (17:00)
[2025-04-15] MEDS ORDERED: MEDROLPACK PO (17:04)
[2025-04-15] MEDS ORDERED: PEPCID AC20 MG PO (17:04)
[2025-04-15] MEDS ORDERED: BENADRYL ALLERG25 MG PO (17:04)
[2025-04-15] MEDS ORDERED: DIPHENHYDRAMINE HCL 50 MG/ML VIAL 1ML ONE (18:28)
[2025-04-15] MEDS ORDERED: METHYLPREDNISOLONE SOD SUCC 40 MG VIAL ONE (18:28)
== END 2025-04-15 23:07 | disposition home or self-care (01) ==
LOC: ER 15:08
DX: L29.89 Other pruritus (principal); Z91.013 Allergy to seafood; Z91.018 Allergy to other foods; Z91.030 Bee allergy status; Z91.0120 Allergy to eggs, unspecified; J45.909 Unspecified asthma, uncomplicated